=== PATIENT | female | born 1990 | race Caucasian/White ===

== ENCOUNTER 2016-10-09 23:50 | Emergency (ER) | payer BC ==
[2016-10-09 20:05] LABS: BASOPHILS 0.3 %; BASOPHILS ABSOLUTE 0.03 10/3/uL (0.0-0.16); EOSINOPHILS 2.3 %; EOSINOPHILS ABSOLUTE 0.21 10/3/uL (0.0-0.53); ER CBC TAT 0 Hrs 12 Mins; HEMATOCRIT 40.7 % (36.0-48.0); HEMOGLOBIN 13.7 g/dL (12.0-16.0); IMMATURE GRANULOCYTES 0.2 %; IMMATURE GRANULOCYTES ABSOLUTE 0.02 10/3/uL (0.0-0.11); LYMPHOCYTES 44.3 %; LYMPHOCYTES ABSOLUTE 4.09 10/3/uL (0.67-4.30); MEAN CORPUS HGB CONC 33.7 g/dL (32.0-36.0); MEAN CORPUSCULAR HEMOGLOB 27.2 pg (26.0-34.0); MEAN CORPUSCULAR VOLUME 80.9 fL (80-100); MEAN PLATELET VOLUME 10.1 fL (9.2-13.0); MONOCYTES 8.1 %; MONOCYTES ABSOLUTE 0.75 10/3/uL (0.21-1.20); NEUTROPHILS 44.8 %; NEUTROPHILS ABSOLUTE 4.14 10/3/uL (2.02-8.40); PLATELET COUNT 296 10/3/uL (150-400); RBC DISTRIBUTION WIDTH 13.2 % (12.0-16.0); RED CELL COUNT 5.03 10/6/uL (4.0-5.6); WHITE BLOOD CELLS 9.2 10/3/uL (4.5-10.5)
[2016-10-09 20:06] LABS: MANUAL DIFF NO %
[2016-10-09 20:13] LABS: ASCORBIC ACID (UR NOT ORDER) NEG (NEG); BILIRUBIN, URINE NEGATIVE (NEG); ER URINALYSIS TAT 0 Hrs 20 Mins; KETONE, URINE NEGATIVE (NEG); LEUKOCYTE ESTERASE(NOT OR SMALL (NEG); NITRITE (URINE) NEG (NEG); WBC (NOT ORDERED) (RFLEX) 9 (0-5)
[2016-10-09 20:18] LABS: BUN (BLOOD UREA NITROGEN) 14 MG/DL (6-23); CHLORIDE, SERUM 105 MMOL/L (96-112); CO2 (CARBON DIOXIDE) 27 MMOL/L (24-34); CREATININE 0.64 MG/DL (0.55-1.02); GFR AFRICAN AMERICAN 143 ML/MIN (>=60); GFR NON AFRICAN AMERICAN 123 ML/MIN (>=60); GLUCOSE, SERUM 98 MG/DL (60-99); POTASSIUM, SERUM 3.9 MMOL/L (3.5-5.3); SODIUM, SERUM 141 MMOL/L (135-148)
[2016-10-16] MEDS ORDERED: VENTOLIN HFA INH (15:10)
[2016-10-16] MEDS ORDERED: PULMOZYME INH (15:10)
[2016-10-16] MEDS ORDERED: NEUR600 PO (15:11)
[2016-10-16] MEDS ORDERED: CREON DR 36,001 EACH PO (15:12)
[2016-10-16] MEDS ORDERED: BUSPAR30 MG PO (15:12)
[2016-10-16] MEDS ORDERED: NOVLOGPUMP SC (15:13)
[2016-10-16] MEDS ORDERED: ZITHROMAX500 MG PO (15:14)
[2016-10-16] MEDS ORDERED: [UNRECOGNIZED DRUG - OTHER] PO (15:15)
[2016-10-16] MEDS ORDERED: PRILOSEC40 MG PO (15:15)
[2016-10-16] MEDS ORDERED: THERA MULTI1 ML PO (15:16)
[2016-10-16] MEDS ORDERED: RANITIDINE300 MG PO (15:16)
[2016-10-16] MEDS ORDERED: TOBRAMYCIN300 MG/5 M INH (15:40)
[2016-10-16] MEDS ORDERED: ALBUTEROL5 INH (15:44)
[2016-10-16] MEDS ORDERED: HYPERTONIC SALINE INH (15:46)
== END 2016-10-10 02:12 | disposition home or self-care (01) ==
LOC: ER 23:50
PROVIDERS: Hospitalist
DX: N13.2 Hydronephrosis with renal and ureteral calculous obstruction (principal); Z87.442 Personal history of urinary calculi; E11.9 Type 2 diabetes mellitus without complications; Z88.1 Allergy status to other antibiotic agents
CPT/HCPCS: 74000; 74176; 80048; 81001; 84703; 85025; 87086; 96374; 99284; J1170; J2405

== ENCOUNTER 2016-10-20 14:07 | Day surgery (SDC) | payer BC ==
--- NOTE | ~2016-10-20 | OP ---
Record Of Operation [facility] [address] [place]. [address] NAME: ABENA CASTRO : 88 STATUS : [facility]#: [id number] AGE: 25 ADM/REG DATE : 10/20/16 MR#: [id number] REPORT SERV DATE: 10/20/16 DICTATED BY: SAROJ MANNING III DATE: 10/20/16 REPORT STATUS : Draft TRANSCRIBED BY: MODL DATE: 10/20/16 DATE OF PROCEDURE: 10/20/2016 PREOPERATIVE DIAGNOSIS: Right ureteral calculus. POSTOPERATIVE DIAGNOSIS: Passed stone. PROCEDURE: Cystoscopy, right retrograde pyelogram, and right ureteral stent placement. SURGEON: Saroj Manning M.D. ANESTHESIA: General. SPECIMENS: None. DRAINS: A 6 x 24 cm double-J ureteral stent. INDICATION: Mrs. Castro is a 25-year-old, white female, who was found to have a right distal ureteral calculus at the bladder wall by CT scan for evaluation of right flank pain. She has not noted passage of the stone and continues to have some pain. Consent is obtained for cystoscopy, right retrograde pyelogram, right ureteroscopy, and stone manipulation. PROCEDURE: After consent was obtained, the patient was identified. She was taken to the OR and put to sleep. She was positioned in the low lithotomy position and was prepped and draped in usual fashion. The 22-Hebrew cystoscope was inserted into the bladder. The bladder was inspected. There were no tumors, stones, or foreign bodies. The urothelium around the right ureteral orifice was erythematous and somewhat edematous consistent with a recently passed stone. A cone-tipped ureteral catheter was then inserted into the right ureteral orifice, and a retrograde pyelogram was obtained. There were no filling defect in the distal ureter. The remaining collecting system appeared normal. 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 I advanced a cone-tip several centimeters up the right ureter. No stone was encountered. Because of the swelling and continued complaints of pain, I have decided to place ureteral stent. Therefore, a Glidewire was passed up the right ureter over which a 6 x 24 cm double-J ureteral stent was advanced. When in position, the wire was removed. The stent was noted to hook into the upper portion of the bifid pelvis and coil in the bladder. The string was left attached. The bladder was then drained, and the scope removed. The knot was tied in the string closer to the urethral meatus, and excess was cut. The patient was awakened and taken to recovery in stable condition. PH/MODL Saroj Manning III, M.D. Record Of [address] [address] NAME: ABENA CASTRO : 88 STATUS : [facility] PAT#: [id number] AGE: 25 ADM/REG DATE : 10/20/16 MR#: [id number] REPORT SERV DATE: 10/20/16 DICTATED BY: SAROJ MANNING III DATE: 10/20/16 REPORT STATUS : Draft TRANSCRIBED BY: MODL DATE: 10/20/16 / [id number] CC: Saroj Manning III, M.D.
[~2016-10-20 14:07] MED LIST: ALBUTEROL5 INH; BUSPAR30 MG PO; CREON DR 36,001 EACH PO; HYPERTONIC SALINE INH; NEUR600 PO; NOVLOGPUMP SC; PRILOSEC40 MG PO; PULMOZYME INH; RANITIDINE300 MG PO; THERA MULTI1 ML PO; TOBRAMYCIN300 MG/5 M INH; VENTOLIN HFA INH; ZITHROMAX500 MG PO; [UNRECOGNIZED DRUG - OTHER] PO
== END 2016-10-20 20:21 | disposition home or self-care (01) ==
LOC: SDC 14:07
PROVIDERS: Urology
PROC: 0T768DZ Dilation of Right Ureter with Intraluminal Device, Via Natural or Artificial Opening Endoscopic (ICD-10-PCS; principal; 2016-10-20 15:30)
PROC: BT1DZZZ Fluoroscopy of Right Kidney, Ureter and Bladder (ICD-10-PCS; 2016-10-20 15:30)
DX: N20.1 Calculus of ureter (principal); E84.9 Cystic fibrosis, unspecified; E11.9 Type 2 diabetes mellitus without complications; K21.9 Gastro-esophageal reflux disease without esophagitis; G57.93 Unspecified mononeuropathy of bilateral lower limbs; Z98.890 Other specified postprocedural states; Z88.1 Allergy status to other antibiotic agents; Z79.899 Other long term (current) drug therapy; Z79.4 Long term (current) use of insulin; Z79.2 Long term (current) use of antibiotics
CPT/HCPCS: 74420; 82962; 84703; A9270-GY; C1769; C2617; J2250; J2405; J2710; J3010; Q9967

== ENCOUNTER 2016-10-27 10:07 | Emergency (ER) | payer BC ==
[2016-10-27 10:45] LABS: BASOPHILS 0.2 %; BASOPHILS ABSOLUTE 0.02 10/3/uL (0.0-0.16); EOSINOPHILS 0.8 %; EOSINOPHILS ABSOLUTE 0.07 10/3/uL (0.0-0.53); ER CBC TAT 0 Hrs 03 Mins; HEMATOCRIT 40.3 % (36.0-48.0); HEMOGLOBIN 13.6 g/dL (12.0-16.0); IMMATURE GRANULOCYTES 0.5 %; IMMATURE GRANULOCYTES ABSOLUTE 0.04 10/3/uL (0.0-0.11); LYMPHOCYTES ABSOLUTE 1.21 10/3/uL (0.67-4.30); MANUAL DIFF NO %; MEAN CORPUS HGB CONC 33.7 g/dL (32.0-36.0); MEAN CORPUSCULAR VOLUME 80.1 fL (80-100); MEAN PLATELET VOLUME 10.3 fL (9.2-13.0); MONOCYTES 11.9 %; MONOCYTES ABSOLUTE 1.03 10/3/uL (0.21-1.20); NEUTROPHILS 72.6 %; NEUTROPHILS ABSOLUTE 6.26 10/3/uL (2.02-8.40); PLATELET COUNT 197 10/3/uL (150-400); RBC DISTRIBUTION WIDTH 13.1 % (12.0-16.0); RED CELL COUNT 5.03 10/6/uL (4.0-5.6); WHITE BLOOD CELLS 8.6 10/3/uL (4.5-10.5)
[2016-10-27 10:51] LABS: ASCORBIC ACID (UR NOT ORDER) NEG (NEG); BILIRUBIN, URINE NEGATIVE (NEG); ER URINALYSIS TAT 0 Hrs 09 Mins; KETONE, URINE NEGATIVE (NEG); LEUKOCYTE ESTERASE(NOT OR NEG (NEG); NITRITE (URINE) NEG (NEG); WBC (NOT ORDERED) (RFLEX) 1 (0-5)
[2016-10-27 11:00] LABS: A/G RATIO 0.8 (0.7-1.9); ALBUMIN 3.3 G/DL (3.5-5.0); CALCIUM, SERUM 8.8 MG/DL (8.5-10.4); CHLORIDE, SERUM 104 MMOL/L (96-112); CO2 (CARBON DIOXIDE) 25 MMOL/L (24-34); CREATININE 0.58 MG/DL (0.55-1.02); GFR AFRICAN AMERICAN 147 ML/MIN (>=60); GFR NON AFRICAN AMERICAN 127 ML/MIN (>=60); SGPT(ALT) 27 U/L (5-65); SODIUM, SERUM 137 MMOL/L (135-148); TOTAL BILIRUBIN 0.3 MG/DL (0-1.2); TOTAL PROTEIN 7.3 G/DL (6.0-8.5)
[2016-10-27 11:01] LABS: ALKALINE PHOSPHATASE 49 U/L (45-117); BUN (BLOOD UREA NITROGEN) 7 MG/DL (6-23); GLUCOSE, SERUM 168 MG/DL (60-99)
[2016-10-27 11:02] LABS: SGOT(AST) 21 U/L (5-40)
[2016-10-27 13:34] LABS: PROCALCITONIN 0.08 ng/mL (<0.5)
== END 2016-10-27 16:56 | disposition home or self-care (01) ==
LOC: ER 10:07
PROVIDERS: Physician Assistant
DX: R10.9 Unspecified abdominal pain (principal); E10.9 Type 1 diabetes mellitus without complications; Z87.442 Personal history of urinary calculi; Z88.1 Allergy status to other antibiotic agents; Z79.4 Long term (current) use of insulin; Z79.2 Long term (current) use of antibiotics; Z79.899 Other long term (current) drug therapy
CPT/HCPCS: 71020; 74176; 80053; 81001; 83605; 83690; 84145; 84703; 85025; 87040 ×2; 96374; 96375; 96376; 99285; J1885; J2405; A9270-GY

== ENCOUNTER 2016-10-30 20:37 | Inpatient (IN) | payer BC ==
--- NOTE | ~2016-10-30 | CN ---
Consultation Report [facility] [address] [place]. [address] NAME: ABENA CASTRO : 88 STATUS : ADM Richy PAT#: [id number] AGE: 25 ADM/REG DATE : 10/30/16 MR#: [id number] REPORT SERV DATE: 11/01/16 DICTATED BY: SAROJ MUKHERJEE DATE: 10/31/16 REPORT STATUS : Draft TRANSCRIBED BY: MODL DATE: 10/31/16 INFECTIOUS DISEASE CONSULT DATE OF CONSULTATION: 10/31/2016 REASON FOR CONSULT: Fever. HISTORY OF PRESENT ILLNESS: A 25 years old white lady with history of cystic fibrosis and diabetes mellitus type 1 and kidney stones who became ill around the 10/09/2016. She developed renal colic with no associated fever. She came to the emergency room at [facility] where a CT scan showed right hydronephrosis, hydroureter due to right ureteropelvic junction stone. The urinalysis had just 9 white blood cells. The urine culture grew mixed aly of gram-positive cocci and diphtheroids. She was given pain medications and told to follow up with Dr. Landon. She continued to have pain. After about a week, the pain character may be changed some. She appeared to have pain over the right flank but also the right pelvis. She had no fever, no chills. She did not receive any antibiotics. On 10/20/2016, she had a cystoscopy. There was no stone seen but the ureteral orifice was red and edematous. She had a bifid pelvis. Decision was made to put a right ureteral stent. She received a dose of Levaquin at that time. After the stent was put in, her pain actually worsened. She had severe pain. The following week, she saw Dr. Landon in the office. He removed the stent but apparently that was difficult and uncomfortable. She received a dose of Cipro at that time. After that, she had nausea and then she developed fever on the 10/25/2016 that increased to high level on 10/26/2016 about 103. She had no dysuria but she had persistent right flank pain. She came to the emergency room on 10/27/[address] scan without contrast showed no hydronephrosis. There was some right perinephric fat edema and stool retention. Lab work showed a procalcitonin of 0.08, lactic acid of 0.5. Liver enzymes were within normal limits. Urinalysis with 1 white blood cells, occasional bacteria. She was prescribed Cipro. In spite of all this, she continued to have high fever, nausea, tiredness, night sweats which were profuse, right flank pain. She had no pelvic pain. No dysuria. No hematuria. No diarrhea. She does have some chronic constipation. She had no toothaches, no skin rash. She has no joint pains. No vomiting. With this persistent high fever, she called back to Urology office and was directly admitted yesterday by Dr. Gaviria. Urinalysis actually showed yeast, rare bacteria, 4 white blood Consultation Report [facility] [address] [facility] [place]. [address] NAME: ABENA CASTRO : 88 STATUS : ADM Richy PAT#: [id number] AGE: 25 ADM/REG DATE : 10/30/16 MR#: [id number] REPORT SERV DATE: 11/01/16 DICTATED BY: SAROJ MUKHERJEE DATE: 10/31/16 REPORT STATUS : Draft TRANSCRIBED BY: YANCY DATE: 10/31/16 cells. She was started on Rocephin. Lab work showed a creatinine of 0.9 and WBC of 7. Today, the creatinine is 0.7, WBC is 5, hemoglobin 12. The highest temperature in the hospital was 101. PAST MEDICAL HISTORY: 1. 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 She takes azithromycin 3 times a week, tobramycin inhaler twice a day, and a medication called lumacaftor/ivacaftor. She has not had any respiratory infections this year. Last year, she had Pseudomonas respiratory infections, treated a couple of times with IV antibiotics. Currently, she has no symptoms such as sore throat, runny nose, cough, shortness of breath. 2. Diabetes mellitus type 1 on insulin pump, followed by Dr. Valdivia at [facility]. 3. 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 SOCIAL HISTORY: She is disabled, . She has a child. She does not smoke. She has three dogs. 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 She has a cat. No cat or dog bites or scratches. No tick bites. 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 MEDICATIONS ON ADMISSION: Albuterol inhaler, fluticasone, Pulmozyme, hypertonic saline. She also takes azithromycin three times a week, buspirone, gabapentin, insulin, Creon, multivitamin, omeprazole, Zantac, Orkambi. PHYSICAL EXAMINATION: GENERAL: On exam done in presence of Lindsay, her nurse the patient is alert, awake, not in distress. Talkative. HEENT: No oral mucosal lesions. Sclerae are white. LUNGS: Very few fine crackles anteriorly, good sounds, no wheezes. HEART: Regular rhythm. No murmurs. ABDOMEN: Obese, compressible, very little discomfort with palpation on the right side. Costovertebral angle some pressure with palpation but very little discomfort on the right side "like pushing against my kidney." SKIN: With old scars. No cellulitis or open lesions that I can see. ASSESSMENT AND PLAN: 1. Febrile illness. 2. Recent right ureteropelvic junction stone seen on the 10/09/[address] scan but not at cystoscopy time on 10/20/2016, presumably that passed. She still had some inflammation perhaps at the ureteral orifice in the bladder. She had ureteral stent, however, between the 10/20/2016 and 10/24/2016. The fever actually started after the ureteral stent was removed. She was started on Cipro on the 10/27/2016 but the only Consultation Report [facility] [address] [place]. [address] NAME: ABENA CASTRO : 88 STATUS : ADM Richy PAT#: [id number] AGE: 25 ADM/REG DATE : 10/30/16 MR#: [id number] REPORT SERV DATE: 11/01/16 DICTATED BY: SAROJ MUKHERJEE DATE: 10/31/16 REPORT STATUS : Draft TRANSCRIBED BY: MODEmma DATE: 10/31/16 urine culture we have is from the 10/09/2016 so there is no other urine culture. She received only quinolones with Levaquin and Cipro as far as I can tell. The concern is for right-sided pyelonephritis with an organism resistant to quinolones. So continue Rocephin that was started last night as well as some IV fluids. We will check ultrasound of the right kidney to check for any obstructive process although nothing was seen on recent CT scan on 10/27/2016. If she has persistent fever, she might need a repeat CT scan with IV contrast to rule out an abscess and to further evaluate for pyelonephritis. She probably has some degree of dehydration. Also, we will resume her home respiratory treatments and antibiotics. We will check CBC tomorrow and procalcitonin level. I discussed with the patient. I discussed with her family, and they had the opportunity to ask questions. EZRA/YANCY Saroj Mukherjee M.D. / [id number] CC: Saroj Landon III, M.D.
--- NOTE | ~2016-10-30 | HP ---
History And Physical [place] [id number] [facility] [place]. [address] NAME: ABENA CASTRO : 88 STATUS : ADM Richy [facility]#: [id number] AGE: 25 ADM/REG DATE : 10/30/16 MR#: [id number] REPORT SERV DATE: 10/31/16 DICTATED BY: SAROJ MANNING III DATE: 10/31/16 REPORT STATUS : Draft TRANSCRIBED BY: MODEmma DATE: 10/31/16 DATE OF ADMISSION: 10/30/2016 ADMITTING DIAGNOSES: 1. Flank pain. 2. Fever. HISTORY OF PRESENT ILLNESS: Ms. Castro is a 25-year-old white female with a history of cystic fibrosis. On 10/20/2016, she underwent cystoscopy and right retrograde pyelogram and right ureteroscopy for a known ureteral stone. It was found out that she had passed the stone without knowing it. A stent was left in place, which was removed in the office several days later without difficulty. She continues to have some pain. A CT scan was obtained through the ER, which showed no hydronephrosis on that side. There were some inflammatory changes. She continued to have some pain, and approximately one week after her procedure, she began having fevers. She is admitted now for further evaluation. PAST MEDICAL HISTORY: Neuropathy, multiple sinus surgeries, cystic fibrosis with lung function of 60%, gastroesophageal reflux disease, nephrolithiasis, and diabetes mellitus. PAST SURGICAL HISTORY: Right hand hardware, both knees, fractured jaw, sinus surgery, tonsillectomy, adenoidectomy, and a Port-A-Cath placement. MEDICATIONS: Home medications were reviewed. ALLERGIES: SHE IS ALLERGIC TO VANCOMYCIN. PHYSICAL EXAMINATION: VITAL SIGNS: She is currently afebrile with normal vital signs. She has good urine output. GENERAL: She is awake and alert. She does not appear to be in any distress. LUNGS: Her lungs are clear. HEART: Regular. ABDOMEN: Soft. There might be some slight right CVA tenderness. LAB WORK: Shows a white blood cell count of 5.2. Electrolytes are within normal limits. BUN and creatinine are 8 and 0.71. Urinalysis is hazy, it is negative for least leukocyte esterase and negative for nitrites. ASSESSMENT: 1. Persistent right flank pain, status post ureteroscopy for nephrolithiasis. 2. Fever of unknown origin. PLAN: Admit for pain control and further evaluation. PH/MODL History And Physical [address] [place]. [address] NAME: ABENA CASTRO : 88 STATUS : ADM Richy PAT#: [id number] AGE: 25 ADM/REG DATE : 10/30/16 MR#: [id number] REPORT SERV DATE: 10/31/16 DICTATED BY: SAROJ MANNING III DATE: 10/31/16 REPORT STATUS : Draft TRANSCRIBED BY: MODL DATE: 10/31/16 Saroj Manning III, M.D. / [id number] CC: Saroj Manning III, M.D.
--- NOTE | ~2016-10-30 | DS ---
Discharge Summary [facility] [address] [place]. [address] NAME: ABENA CASTRO : 88 STATUS : DIS IN PAT#: [id number] AGE: 25 ADM/REG DATE : 10/30/16 MR#: [id number] REPORT SERV DATE: 11/10/16 DICTATED BY: SAROJ MANNING III DATE: 11/09/16 REPORT STATUS : Draft TRANSCRIBED BY: YANCY DATE: 11/09/16 Data Collection from hospitalization DISCHARGE DIAGNOSES: 1. Pyelonephritis, right side. 2. Headache? Due to medications. 3. Cystic fibrosis. 4. Gastroesophageal reflux disease. 5. Diabetes mellitus. 6. Neuropathy. CONSULTATIONS: Dr. Saroj Eason. PROCEDURES PERFORMED: 1. Renal ultrasound, 11/01/2016. 2. CT of the abdomen and pelvis with contrast, 11/02/2016. MEDICATIONS: Zithromax 500 mg Sunday, Sunday, and Sunday, tobramycin 300 mg twice daily, BuSpar 30 mg twice daily, Zantac 300 mg at bedtime, Flonase twice daily as directed, Neurontin 1200 mg three times daily, NovoLog for insulin pump as directed, Creon five caps with meals as directed, multivitamin 5 mL daily, Prilosec 40 mg every morning, Ventolin HFA one puff three times daily as needed, Proventil one nebulizer INH as needed, Pulmozyme as directed, Orkambi two twice daily, hypertonic saline as directed. CONDITION AT DISCHARGE: Stable. DISPOSITION: She was discharged home to continue an 1800-calorie ADA diet with activity as tolerated. She was to follow up with Dr. Saroj eason as needed, follow up with myself in two weeks. Home health care was in place upon discharge. HOSPITAL COURSE: This 25-year-old female had a history of cystic fibrosis. On 10/20/2016, she underwent cystoscopy and right retrograde pyelogram and right ureteroscopy for known ureteral stone. It was found that she had passed the stone without knowing it. A stent was left in place which was removed in the office several days later without difficulty. She continued to have some pain. A CT scan was obtained through the emergency room, which had shown no hydronephrosis on that side. There were some inflammatory changes. She continued to have some pain and approximately one week after her procedure, she began having fever. She was now admitted for further evaluation. Upon admission to the hospital, she had been placed on level 2 sliding scale insulin. She did undergo blood cultures as well as urinalysis and urine culture upon admission. Following the day of admission, she had been evaluated by Dr. Saroj Eason in regard to her fever and he had noted that the concern was for right-sided pyelonephritis with an organism resistant to quinolones as she had received only quinolones with Levaquin and Cipro as far as could be told. He had recommended that she continue with Rocephin that was begun upon admission as well as some IV fluids. He did recommend she undergo a renal ultrasound to check for any obstructive process, although nothing was seen on a recent CT scan on 10/27/2016. He had also felt that she probably had some degree of dehydration. On 11/01/2016, she was noted to be feeling better, and her temperature was down to 99. She was continued on supportive care. She did undergo the Discharge Summary [address] [place]. [address] NAME: ABENA CASTRO : 88 STATUS : DIS IN PAT#: [id number] AGE: 25 ADM/REG DATE : 10/30/16 MR#: [id number] REPORT SERV DATE: 11/10/16 DICTATED BY: SAROJ MANNING III DATE: 11/09/16 REPORT STATUS : Draft TRANSCRIBED BY: YANCY DATE: 11/09/16 above renal ultrasound. Her antibiotics had been adjusted as well. It was also recommended that she undergo a CT of the abdomen and pelvis with contrast. She was noted to have begun having chills. On 11/02/2016, she did undergo diabetic education, and was also noted to have complaints of headache. She did also have a temperature up to 102.1. She did undergo the above CT of the abdomen and pelvis with contrast. She was continued on supportive care. Her headache was felt to be possibly due to medications. On 11/03/2016, her temperature was back down to 99 and her WBCs was 7.1. She was continued on antibiotics. Her blood culture was noted to have been negative. She did state that, she was feeling better, and that her headache was also better. She did remain in stable condition and was then discharged with the above instructions. Information collected by: Guido Tabor. I submit the above information as my discharge summary. ROSALINDA/YANCY Saroj Manning III, M.D. / [id number] CC: Micah Schmitz III, M.D.
[2016-10-30 22:10] LABS: BASOPHILS 0.3 %; BASOPHILS ABSOLUTE 0.02 10/3/uL (0.0-0.16); EOSINOPHILS 0.8 %; EOSINOPHILS ABSOLUTE 0.06 10/3/uL (0.0-0.53); HEMOGLOBIN 11.5 g/dL (12.0-16.0); IMMATURE GRANULOCYTES 0.3 %; IMMATURE GRANULOCYTES ABSOLUTE 0.02 10/3/uL (0.0-0.11); LYMPHOCYTES 25.7 %; LYMPHOCYTES ABSOLUTE 1.91 10/3/uL (0.67-4.30); MEAN CORPUSCULAR HEMOGLOB 26.8 pg (26.0-34.0); MEAN CORPUSCULAR VOLUME 78.8 fL (80-100); MONOCYTES 15.5 %; MONOCYTES ABSOLUTE 1.15 10/3/uL (0.21-1.20); NEUTROPHILS 57.4 %; NEUTROPHILS ABSOLUTE 4.26 10/3/uL (2.02-8.40); RBC DISTRIBUTION WIDTH 13.3 % (12.0-16.0); RED CELL COUNT 4.29 10/6/uL (4.0-5.6); WHITE BLOOD CELLS 7.4 10/3/uL (4.5-10.5)
[2016-10-30 22:11] LABS: HEMATOCRIT 33.8 % (36.0-48.0); MANUAL DIFF NO %; PLATELET COUNT 258 10/3/uL (150-400)
[2016-10-30 22:25] LABS: CALCIUM, SERUM 8.8 MG/DL (8.5-10.4); CHLORIDE, SERUM 100 MMOL/L (96-112); CO2 (CARBON DIOXIDE) 26 MMOL/L (24-34); CREATININE 0.92 MG/DL (0.55-1.02); GFR AFRICAN AMERICAN 100 ML/MIN (>=60); GFR NON AFRICAN AMERICAN 86 ML/MIN (>=60); POTASSIUM, SERUM 3.9 MMOL/L (3.5-5.3); SODIUM, SERUM 137 MMOL/L (135-148)
[2016-10-30 22:28] LABS: BUN (BLOOD UREA NITROGEN) 11 MG/DL (6-23); GLUCOSE, SERUM 358 MG/DL (60-99)
[2016-10-31 01:42] LABS: ASCORBIC ACID (UR NOT ORDER) 40 (NEG); BILIRUBIN, URINE NEGATIVE (NEG); KETONE, URINE 20 MG/DL (NEG); LEUKOCYTE ESTERASE(NOT OR NEG (NEG); WBC (NOT ORDERED) (RFLEX) 4 (0-5)
[2016-10-31 07:02] LABS: BASOPHILS 0.2 %; BASOPHILS ABSOLUTE 0.01 10/3/uL (0.0-0.16); EOSINOPHILS 1.2 %; EOSINOPHILS ABSOLUTE 0.06 10/3/uL (0.0-0.53); HEMATOCRIT 36.8 % (36.0-48.0); HEMOGLOBIN 12.3 g/dL (12.0-16.0); IMMATURE GRANULOCYTES 0.4 %; IMMATURE GRANULOCYTES ABSOLUTE 0.02 10/3/uL (0.0-0.11); LYMPHOCYTES 32.1 %; LYMPHOCYTES ABSOLUTE 1.66 10/3/uL (0.67-4.30); MEAN CORPUS HGB CONC 33.4 g/dL (32.0-36.0); MEAN CORPUSCULAR HEMOGLOB 26.7 pg (26.0-34.0); MEAN PLATELET VOLUME 11.1 fL (9.2-13.0); MONOCYTES 18.2 %; MONOCYTES ABSOLUTE 0.94 10/3/uL (0.21-1.20); NEUTROPHILS 47.9 %; NEUTROPHILS ABSOLUTE 2.48 10/3/uL (2.02-8.40); PLATELET COUNT 274 10/3/uL (150-400); RBC DISTRIBUTION WIDTH 13.4 % (12.0-16.0); WHITE BLOOD CELLS 5.2 10/3/uL (4.5-10.5)
[2016-10-31 07:05] LABS: MANUAL DIFF NO %
[2016-10-31 07:14] LABS: BUN (BLOOD UREA NITROGEN) 8 MG/DL (6-23); CALCIUM, SERUM 8.8 MG/DL (8.5-10.4); CHLORIDE, SERUM 103 MMOL/L (96-112); CO2 (CARBON DIOXIDE) 24 MMOL/L (24-34); CREATININE 0.71 MG/DL (0.55-1.02); GFR AFRICAN AMERICAN 136 ML/MIN (>=60); GFR NON AFRICAN AMERICAN 118 ML/MIN (>=60); POTASSIUM, SERUM 3.9 MMOL/L (3.5-5.3); SODIUM, SERUM 138 MMOL/L (135-148)
[2016-10-31 07:15] LABS: GLUCOSE, SERUM 177 MG/DL (60-99)
[2016-10-31] MEDS ORDERED: FLONASE NAS (13:37)
[2016-10-31 20:16] LABS: WBC (NOT ORDERED) (RFLEX) 0 (0-5)
[2016-10-31 20:29] LABS: ASCORBIC ACID (UR NOT ORDER) 40 (NEG); BILIRUBIN, URINE NEGATIVE (NEG); KETONE, URINE NEGATIVE (NEG); LEUKOCYTE ESTERASE(NOT OR NEG (NEG)
[2016-11-01 04:27] LABS: BASOPHILS 0.3 %; BASOPHILS ABSOLUTE 0.02 10/3/uL (0.0-0.16); EOSINOPHILS ABSOLUTE 0.06 10/3/uL (0.0-0.53); HEMOGLOBIN 10.6 g/dL (12.0-16.0); IMMATURE GRANULOCYTES 0.5 %; IMMATURE GRANULOCYTES ABSOLUTE 0.03 10/3/uL (0.0-0.11); LYMPHOCYTES 32.8 %; LYMPHOCYTES ABSOLUTE 1.88 10/3/uL (0.67-4.30); MEAN CORPUSCULAR HEMOGLOB 26.4 pg (26.0-34.0); MEAN PLATELET VOLUME 10.5 fL (9.2-13.0); MONOCYTES 13.8 %; MONOCYTES ABSOLUTE 0.79 10/3/uL (0.21-1.20); NEUTROPHILS 51.6 %; NEUTROPHILS ABSOLUTE 2.95 10/3/uL (2.02-8.40); PLATELET COUNT 287 10/3/uL (150-400); RBC DISTRIBUTION WIDTH 13.4 % (12.0-16.0); RED CELL COUNT 4.01 10/6/uL (4.0-5.6); WHITE BLOOD CELLS 5.7 10/3/uL (4.5-10.5)
[2016-11-01 04:28] LABS: HEMATOCRIT 32.1 % (36.0-48.0); MANUAL DIFF NO %
[2016-11-01 04:47] LABS: BUN (BLOOD UREA NITROGEN) 8 MG/DL (6-23); CALCIUM, SERUM 8.2 MG/DL (8.5-10.4); CHLORIDE, SERUM 108 MMOL/L (96-112); CO2 (CARBON DIOXIDE) 23 MMOL/L (24-34); CREATININE 0.58 MG/DL (0.55-1.02); GFR AFRICAN AMERICAN 147 ML/MIN (>=60); GFR NON AFRICAN AMERICAN 127 ML/MIN (>=60); POTASSIUM, SERUM 4.4 MMOL/L (3.5-5.3); SODIUM, SERUM 138 MMOL/L (135-148)
[2016-11-01 04:51] LABS: GLUCOSE, SERUM 236 MG/DL (60-99)
[2016-11-01 06:57] LABS: PROCALCITONIN 0.28 ng/mL (<0.5)
[2016-11-02 06:51] LABS: BASOPHILS 0.2 %; BASOPHILS ABSOLUTE 0.02 10/3/uL (0.0-0.16); EOSINOPHILS 1.2 %; HEMATOCRIT 32.4 % (36.0-48.0); HEMOGLOBIN 11.1 g/dL (12.0-16.0); IMMATURE GRANULOCYTES 0.6 %; IMMATURE GRANULOCYTES ABSOLUTE 0.05 10/3/uL (0.0-0.11); LYMPHOCYTES 24.5 %; LYMPHOCYTES ABSOLUTE 1.97 10/3/uL (0.67-4.30); MEAN CORPUS HGB CONC 34.3 g/dL (32.0-36.0); MEAN CORPUSCULAR HEMOGLOB 27.1 pg (26.0-34.0); MEAN PLATELET VOLUME 9.9 fL (9.2-13.0); MONOCYTES 11.2 %; NEUTROPHILS 62.3 %; NEUTROPHILS ABSOLUTE 5.01 10/3/uL (2.02-8.40); RBC DISTRIBUTION WIDTH 13.5 % (12.0-16.0)
[2016-11-02 06:52] LABS: MANUAL DIFF NO %; PLATELET COUNT 393 10/3/uL (150-400); WHITE BLOOD CELLS 8.1 10/3/uL (4.5-10.5)
[2016-11-02 07:08] LABS: BUN (BLOOD UREA NITROGEN) 5 MG/DL (6-23); CALCIUM, SERUM 8.9 MG/DL (8.5-10.4); CHLORIDE, SERUM 105 MMOL/L (96-112); CO2 (CARBON DIOXIDE) 23 MMOL/L (24-34); CREATININE 0.59 MG/DL (0.55-1.02); GFR AFRICAN AMERICAN 147 ML/MIN (>=60); GFR NON AFRICAN AMERICAN 126 ML/MIN (>=60); POTASSIUM, SERUM 4.2 MMOL/L (3.5-5.3); SGOT(AST) 16 U/L (5-40); SGPT(ALT) 33 U/L (5-65); SODIUM, SERUM 141 MMOL/L (135-148); TOTAL BILIRUBIN 0.3 MG/DL (0-1.2); TOTAL PROTEIN 7.1 G/DL (6.0-8.5)
[2016-11-02 07:09] LABS: A/G RATIO 0.5 (0.7-1.9); ALBUMIN 2.5 G/DL (3.5-5.0); ALKALINE PHOSPHATASE 106 U/L (45-117); GLOBULIN 4.6 G/DL (2.5-4.1); GLUCOSE, SERUM 186 MG/DL (60-99)
[2016-11-02 07:36] LABS: PROCALCITONIN 0.19 ng/mL (<0.5)
[2016-11-03 07:54] LABS: BUN (BLOOD UREA NITROGEN) 8 MG/DL (6-23); CALCIUM, SERUM 8.7 MG/DL (8.5-10.4); CHLORIDE, SERUM 103 MMOL/L (96-112); CO2 (CARBON DIOXIDE) 24 MMOL/L (24-34); CREATININE 0.63 MG/DL (0.55-1.02); GFR AFRICAN AMERICAN 143 ML/MIN (>=60); GFR NON AFRICAN AMERICAN 124 ML/MIN (>=60); SODIUM, SERUM 137 MMOL/L (135-148)
[2016-11-03 07:55] LABS: GLUCOSE, SERUM 255 MG/DL (60-99); POTASSIUM, SERUM 5.2 MMOL/L (3.5-5.3)
[2016-11-03 08:51] LABS: BASOPHILS 0.4 %; BASOPHILS ABSOLUTE 0.03 10/3/uL (0.0-0.16); EOSINOPHILS 2.1 %; EOSINOPHILS ABSOLUTE 0.15 10/3/uL (0.0-0.53); HEMATOCRIT 35.2 % (36.0-48.0); HEMOGLOBIN 11.7 g/dL (12.0-16.0); IMMATURE GRANULOCYTES 1.1 %; IMMATURE GRANULOCYTES ABSOLUTE 0.08 10/3/uL (0.0-0.11); LYMPHOCYTES 24.1 %; MEAN CORPUS HGB CONC 33.2 g/dL (32.0-36.0); MEAN CORPUSCULAR HEMOGLOB 26.2 pg (26.0-34.0); MEAN CORPUSCULAR VOLUME 78.7 fL (80-100); MEAN PLATELET VOLUME 10.1 fL (9.2-13.0); MONOCYTES 10.8 %; MONOCYTES ABSOLUTE 0.76 10/3/uL (0.21-1.20); NEUTROPHILS 61.5 %; NEUTROPHILS ABSOLUTE 4.33 10/3/uL (2.02-8.40); PLATELET COUNT 452 10/3/uL (150-400); RBC DISTRIBUTION WIDTH 13.3 % (12.0-16.0); RED CELL COUNT 4.47 10/6/uL (4.0-5.6); WHITE BLOOD CELLS 7.1 10/3/uL (4.5-10.5)
[2016-11-03 08:56] LABS: MANUAL DIFF NO %
[2016-11-03] MEDS ORDERED: IMITREX50 PO (17:09)
== END 2016-11-03 18:22 | disposition home or self-care (01) | DRG 689 ==
LOC: 4SO 20:37
PROVIDERS: Internal Medicine Infectious Disease; Urology
DX: N12 Tubulo-interstitial nephritis, not specified as acute or chronic (principal); E84.0 Cystic fibrosis with pulmonary manifestations; G62.9 Polyneuropathy, unspecified; E16.8 Other specified disorders of pancreatic internal secretion; Z87.442 Personal history of urinary calculi; Z98.890 Other specified postprocedural states; K21.9 Gastro-esophageal reflux disease without esophagitis; Z88.1 Allergy status to other antibiotic agents; E10.9 Type 1 diabetes mellitus without complications; Z79.4 Long term (current) use of insulin; Z96.41 Presence of insulin pump (external) (internal); R51 Headache
CPT/HCPCS: 71020; 74176; 74177; 76775; 80048; 80053; 81001; 82962; 83605; 83690; 84145; 84703; 85025; 87040; 87086; 94640; 96374; 96375; 96376; 99285; A9270-GY; J0692; J1170; J1885; J2405; Q9967